=== PATIENT | female | born 1970 | race Two or more races ===

== ENCOUNTER 2017-11-15 07:22 | Emergency (ER) | payer SELFPAY ==
[~2017-11-15] VITALS: Ht 149.9 cm; Wt 63.5 kg
[2017-11-15 08:23] VITALS: BP 114/76
[2017-11-15 08:26] LABS: Basophils # (auto) 0 uL; Basophils % (auto) 0.1 % (0.0-2.0); Eosinophils # (auto) 0 uL; Eosinophils % (auto) 0.2 % (0.0-7.0); Hematocrit 43.6 % (36.0-46.0); Hemoglobin 14.7 g/dL (12.2-16.2); Lymphocytes # (auto) 0.7 uL; Lymphocytes % (auto) 5.9 % (10.0-50.0); Mean Corpuscular Hemoglobin 30.6 pg (28.0-32.0); Mean Corpuscular Hgb Conc. 33.7 g/dL (32.0-36.0); Mean Corpuscular Volume 90.8 fL (80.0-100.0); Monocytes # (auto) 0.6 uL; Monocytes % (auto) 4.9 % (0.0-12.0); Neutrophils # (auto) 10.1 uL; Neutrophils % (auto) 88.9 % (37.0-80.0); Platelet Count (auto) 314 10^3/uL (140-450); Red Cell Distribution Width 13.6 % (11.8-14.3); White Blood Cell 11.3 10^3/uL (4.4-10.8)
[2017-11-15 08:29] LABS: Urine Bacteria NONE SEEN /hpf (None Seen); Urine Blood 2+ /uL (Negative); Urine Mucus MODERATE (None Seen); Urine Specific Gravity 1.028 (1.001-1.035); Urine WBC 2 /hpf (0 - 5)
[2017-11-15 08:29] LABS: Albumin 3.7 g/dL (3.4-5.0); Calcium 8.4 mg/dL (8.5-10.1); Magnesium 2.3 mg/dL (1.6-2.6); Potassium 3.4 mmol/L (3.5-5.1)
[2017-11-15 08:32] LABS: BUN/Creatinine Ratio 14.5
[2017-11-15] MEDS ORDERED: SODIUM CHLORIDE 0.9% 1,000 ML IVB ONE (08:32)
[2017-11-15 08:35] LABS: Bilirubin, Total 0.6 mg/dL (0.2-1.0); Total Protein 8.3 g/dL (6.4-8.2)
[2017-11-15] MEDS ORDERED: KETOROLAC TROMETH 30 MG/ML 1ML VIAL IV ONE (08:45)
[2017-11-15] MEDS ORDERED: ONDANSETRON HCL 4 MG/2 ML VIAL IV ONE (08:45)
== END 2017-11-15 09:43 | disposition home or self-care (01) ==
LOC: ER 07:22
DX: K52.9 Noninfective gastroenteritis and colitis, unspecified (principal); I10 Essential (primary) hypertension; Z90.49 Acquired absence of other specified parts of digestive tract
CPT/HCPCS: 36415; 74176; 80053; 81001; 82150; 83690; 83735; 84702; 85025; 96361; 96374; 96375; 99285; J1885; J2405; J7030

== ENCOUNTER 2020-06-22 11:05 | Emergency (ER) | payer MEDICAID ==
[~2020-06-22] VITALS: Ht 149.9 cm; Wt 68.0 kg
[2020-06-22] MEDS ORDERED: cefTRIAXone SOD 1,000 MG VL IM ONE (12:45)
[2020-06-22 14:07] VITALS: BP 147/99
== END 2020-06-22 15:37 | disposition home or self-care (01) ==
LOC: ER 11:05
DX: U07.1 COVID-19 (principal); J12.89 Other viral pneumonia; I10 Essential (primary) hypertension; Z90.49 Acquired absence of other specified parts of digestive tract
CPT/HCPCS: 71045; 96372; 99283; J0696

== ENCOUNTER 2020-06-24 09:12 | Emergency (ER) | payer MEDICAID ==
[2020-06-24 09:39] VITALS: BP 137/86
[2020-06-24] MEDS ORDERED: ONDANSETRON ODT 4 MG TAB PO ONE (10:45)
== END 2020-06-24 11:22 | disposition home or self-care (01) ==
LOC: ER 09:12
DX: U07.1 COVID-19 (principal); R11.2 Nausea with vomiting, unspecified; I10 Essential (primary) hypertension; Z90.49 Acquired absence of other specified parts of digestive tract
CPT/HCPCS: 71045; 99283; Q0162

== ENCOUNTER 2024-03-16 09:03 | Inpatient (IN) | payer MEDICAID, SELFPAY ==
[~2024-03-16] VITALS: Ht 149.9 cm; Wt 73.4 kg
[2024-03-16 10:11] LABS: Basophils # (auto) 0 10 ^3/uL (0-0.2); Basophils % (auto) 0.3 % (0.0-2.0); Eosinophils # (auto) 0.1 10 ^3/uL (0-0.8); Eosinophils % (auto) 0.4 % (0.0-7.0); Hematocrit 41.5 % (36.0-46.0); Hemoglobin 14.6 g/dL (12.2-16.2); Lymphocytes # (auto) 1.5 10 ^3/uL (0.4-5.4); Lymphocytes % (auto) 9.5 % (10.0-50.0); Mean Corpuscular Hemoglobin 30.6 pg (28.0-32.0); Mean Corpuscular Hgb Conc. 35.1 g/dL (32.0-36.0); Mean Corpuscular Volume 87.3 fL (80.0-100.0); Monocytes # (auto) 0.5 10 ^3/uL (0-1.3); Neutrophils # (auto) 13.3 10 ^3/uL (1.6-8.6); Neutrophils % (auto) 86.8 % (37.0-80.0); Platelet Count (auto) 319 10^3/uL (140-450); Red Blood Cells 4.76 10^6/uL (4.0-5.20); White Blood Cell 15.4 10^3/uL (4.4-10.8)
[2024-03-16] MEDS: SODIUM CHLORIDE 0.9% 1,000 ML IV ONE ×2 (10:17→11:08)
[2024-03-16 10:23] LABS: Chloride 108 mmol/L (98-107); Potassium 3.6 mmol/L (3.5-5.1); Sodium 140 mmol/L (136-145)
[2024-03-16 10:24] LABS: Anion Gap 10 (5-15); Carbon Dioxide 22 mmol/L (20-30)
[2024-03-16 10:25] VITALS: PULSE 99; RESP 21; O2SAT 95
[2024-03-16 10:25] LABS: Calcium 9.8 mg/dL (8.7-10.4)
[2024-03-16 10:29] LABS: BUN/Creatinine Ratio 16.4 (10.0-20.0); Blood Urea Nitrogen 11 mg/dL (9-23); Glucose 150 mg/dL (74-106)
[2024-03-16] MEDS: MORPHINE SULFATE 4 MG/ML SYR/VIAL IV ONE (10:29)
[2024-03-16] MEDS: ONDANSETRON HCL 4 MG/2 ML VIAL IV ONE (10:29)
[2024-03-16] MEDS ORDERED: HYDROcodone-ACET 5/325MG TAB PO PRN (15:30)
[2024-03-16] MEDS ORDERED: NITROGLYCERIN 0.4 MG SL TAB SL PRN (15:30)
[2024-03-16] MEDS ORDERED: MORPHINE SULFATE INJ 2 MG/ml SYRG IV PRN (15:30)
[2024-03-16] MEDS ORDERED: hydrALAZINE HCL 20 MG/ML VL IV PRN (15:30)
[2024-03-16] MEDS ORDERED: DOCUSATE SOD 100 MG CAP PO PRN (15:30)
[2024-03-16] MEDS ORDERED: DEXTROSE (50%) 50ML SYRG IV PRN (15:30)
[2024-03-16] MEDS: cefTRIAXone 1GM/50ML D5W 50 ML IV ONE (16:26)
[2024-03-16 17:44] VITALS: BP 132/86; PULSE 101; RESP 20; TEMP 98.3; O2SAT 95
[2024-03-16] MEDS: ACCU-CHEK COMFORT CURVE STRIP VI SCH (18:00)
[2024-03-16 18:10] VITALS: BP 132/86; PULSE 101; RESP 18; TEMP 98.3; O2SAT 95
[2024-03-16] MEDS ORDERED: ATOR20TA50 PO (18:30)
[2024-03-16] MEDS ORDERED: METF-370 PO (18:30)
[2024-03-16] MEDS ORDERED: FLUT50SP NAS (18:30)
[2024-03-16] MEDS ORDERED: AMLO1TAB23 PO (18:30)
[2024-03-16] MEDS: InsuLIN REG 1unit/0.01ml Soln (100units/ml) SC SCH ×2 (19:00→21:40)
[2024-03-16 20:00] VITALS: PULSE 104; RESP 20; O2SAT 98
[2024-03-16 21:00] VITALS: BP 140/73; PULSE 104; RESP 18; TEMP 98.4; O2SAT 98
[2024-03-16] MEDS: SODIUM CHLOR 0.9% PF (SALINE LOCK) 10ML VIAL/SYR IV SCH (21:15)
[2024-03-16] MEDS: ONDANSETRON HCL 4 MG/2 ML VIAL IV PRN (21:36)
[2024-03-16 21:55] LABS: Urine Bacteria FEW /hpf (None Seen); Urine Blood Negative /uL (Negative); Urine Clarity Clear (Clear); Urine Color Light-Yellow (Yellow); Urine Mucus FEW (None Seen); Urine Protein, UAD Negative (Negative); Urine Specific Gravity 1.018 (1.001-1.035); Urine Urobilinogen Normal (Negative); Urine WBC 2 /hpf (0 - 5); Urine pH 6.5 (5.0-9.0)
[2024-03-17 07:41] LABS: Basophils # (auto) 0 10 ^3/uL (0-0.2); Basophils % (auto) 0.2 % (0.0-2.0); Eosinophils # (auto) 0 10 ^3/uL (0-0.8); Eosinophils % (auto) 0.6 % (0.0-7.0); Hematocrit 37.8 % (36.0-46.0); Lymphocytes # (auto) 1.8 10 ^3/uL (0.4-5.4); Mean Corpuscular Hemoglobin 30.5 pg (28.0-32.0); Mean Corpuscular Hgb Conc. 34.4 g/dL (32.0-36.0); Mean Corpuscular Volume 88.8 fL (80.0-100.0); Monocytes # (auto) 0.8 10 ^3/uL (0-1.3); Monocytes % (auto) 9.2 % (0.0-12.0); Neutrophils # (auto) 5.7 10 ^3/uL (1.6-8.6); Nucleated Red Blood Cells % 0.1 %; Platelet Count (auto) 260 10^3/uL (140-450); Red Blood Cells 4.26 10^6/uL (4.0-5.20); Red Cell Distribution Width 13.9 % (11.8-14.3); White Blood Cell 8.4 10^3/uL (4.4-10.8)
[2024-03-17 07:52] LABS: Alanine Aminotransferase 172 U/L (7-40); Alkaline Phosphatase 89 U/L (46-116); Anion Gap 7 (5-15); Aspartate Aminotransferase 113 U/L (13-40); BUN/Creatinine Ratio 9.1 (10.0-20.0); Blood Urea Nitrogen 6 mg/dL (9-23); Calcium 9.2 mg/dL (8.7-10.4); Carbon Dioxide 27 mmol/L (20-30); Chloride 107 mmol/L (98-107); Glucose 124 mg/dL (74-106); Potassium 3.3 mmol/L (3.5-5.1); Sodium 141 mmol/L (136-145)
[2024-03-17 07:53] LABS: Albumin 4.1 g/dL (3.2-4.8); Bilirubin, Total 0.8 mg/dL (0.2-1.0); Total Protein 6.6 g/dL (5.7-8.2)
[2024-03-17 08:30] VITALS: BP 129/77; PULSE 81; RESP 19; TEMP 98.5; O2SAT 94
[2024-03-17] MEDS: cefTRIAXone 1GM/50ML D5W 50 ML IV SCH (09:21)
[2024-03-17] MEDS: PANTOPRAZOLE 40 MG/10 ML VIAL INJ IV SCH (09:21)
[2024-03-17 11:40] VITALS: BP 133/68; PULSE 89; RESP 18; TEMP 97.9; O2SAT 94
[2024-03-17] MEDS: ACETAMINOPHEN 325 MG TAB PO PRN (11:45)
[2024-03-17 17:00] VITALS: BP 129/73; PULSE 73; RESP 20; TEMP 98.3; O2SAT 94
[2024-03-17 20:00] VITALS: PULSE 66; RESP 16; O2SAT 96
[2024-03-17 21:00] VITALS: BP 134/77; PULSE 66; RESP 16; TEMP 97.9; O2SAT 96
[2024-03-18 01:00] VITALS: BP 103/73; PULSE 79; RESP 16; TEMP 98.1; O2SAT 93
[2024-03-18 04:48] VITALS: BP 114/65; PULSE 80; RESP 16; TEMP 97.8; O2SAT 93
[2024-03-18] MEDS: MORPHINE SULFATE INJ 2 MG/ml SYRG IV PRN (05:54)
[2024-03-18 06:30] LABS: Basophils # (auto) 0 10 ^3/uL (0-0.2); Basophils % (auto) 0.4 % (0.0-2.0); Eosinophils # (auto) 0.1 10 ^3/uL (0-0.8); Eosinophils % (auto) 2.2 % (0.0-7.0); Hematocrit 37.7 % (36.0-46.0); Hemoglobin 13.3 g/dL (12.2-16.2); Lymphocytes # (auto) 2.3 10 ^3/uL (0.4-5.4); Lymphocytes % (auto) 42.4 % (10.0-50.0); Mean Corpuscular Hgb Conc. 35.3 g/dL (32.0-36.0); Mean Corpuscular Volume 87.7 fL (80.0-100.0); Monocytes # (auto) 0.7 10 ^3/uL (0-1.3); Monocytes % (auto) 12.3 % (0.0-12.0); Neutrophils # (auto) 2.4 10 ^3/uL (1.6-8.6); Neutrophils % (auto) 42.7 % (37.0-80.0); Nucleated Red Blood Cells % 0.1 %; Platelet Count (auto) 264 10^3/uL (140-450); Red Cell Distribution Width 14.3 % (11.8-14.3); White Blood Cell 5.5 10^3/uL (4.4-10.8)
[2024-03-18 06:46] LABS: Alanine Aminotransferase 178 U/L (7-40); Alkaline Phosphatase 86 U/L (46-116); Anion Gap 7 (5-15); Aspartate Aminotransferase 105 U/L (13-40); BUN/Creatinine Ratio 11.7 (10.0-20.0); Blood Urea Nitrogen 7 mg/dL (9-23); Calcium 9.4 mg/dL (8.7-10.4); Carbon Dioxide 27 mmol/L (20-30); Chloride 107 mmol/L (98-107); Glucose 108 mg/dL (74-106); Potassium 3.1 mmol/L (3.5-5.1); Sodium 141 mmol/L (136-145)
[2024-03-18 06:47] LABS: Bilirubin, Total 0.5 mg/dL (0.2-1.0); Total Protein 6.6 g/dL (5.7-8.2)
[2024-03-18 08:44] VITALS: BP 112/67; PULSE 80; RESP 15; TEMP 98; O2SAT 93
[2024-03-18 09:07] LABS: Hepatitis B Core Total AB Negative (Negative)
[2024-03-18] MEDS ORDERED: ZOFR4T PO (09:44)
[2024-03-18] MEDS ORDERED: LEVO500T91 PO (09:44)
[2024-03-18 11:44] VITALS: BP 112/67; PULSE 80; RESP 15; TEMP 98; O2SAT 93
[2024-03-18 12:02] LABS: Hepatitis A Ab IgM Negative; Hepatitis A Total Antibody Positive (Negative); Hepatitis B Core IgM Negative; Hepatitis B Surface Antibody Negative (Negative); Hepatitis B Surface Antigen Negative (Negative); Hepatitis C Antibody Negative (Negative)
[2024-03-18 13:00] VITALS: BP 124/69; PULSE 69; RESP 15; TEMP 98.3; O2SAT 92
== END 2024-03-18 16:05 | disposition home or self-care (01) | DRG 872 ==
LOC: ER 09:03 → OVERFLOW 15:29 → CENTRAL 17:38
PROVIDERS: ADMIT Nurse Practitioner Family; ATTEND Family Medicine
DX: A41.9 Sepsis, unspecified organism (principal); N39.0 Urinary tract infection, site not specified; E11.65 Type 2 diabetes mellitus with hyperglycemia; I10 Essential (primary) hypertension; K52.9 Noninfective gastroenteritis and colitis, unspecified; D25.1 Intramural leiomyoma of uterus; Z90.49 Acquired absence of other specified parts of digestive tract; Z79.899 Other long term (current) drug therapy; Z79.4 Long term (current) use of insulin
CPT/HCPCS: 36415; 74176; 74181; 76856; 80048; 80053; 80074; 81001; 82962; 83036; 85025; 86704; 86706; 86708; 86803; 87340; 99291; G0378; J1815; J2405; J2470